=== PATIENT | female | born 1960 | race Caucasian/White ===

== ENCOUNTER 2024-11-14 09:29 | Outpatient (CLI) | payer BC, SELFPAY ==
--- NOTE | 2024-11-14 10:52 | P.ANES_ITS ---
Anesthesia Charges Start Date/Time Anesthesia Start Date: 11/14/24 Anesthesia Start Time: 10:09 Stop Date/Time Anesthesia Stop Date: 11/14/24 Anesthesia Stop Time: 10:45 Coding CPT Codes CPT Codes: ANES LWR INTST NDSC NOS - [id number] ([id number]) P3 - PATIENT W/SEVERE SYS DISEASE, QK - EXPEDITIONARY FORCE COMBAT SKILLS 2-4 CNCRNT ANES PROC, QX - CREATIVE PERFUMER SVC W/ MD MED DIRECTION
--- NOTE | 2024-11-14 10:52 | W.ANESCHARGE ---
Anesthesia Charges Start Date/Time Anesthesia Start Date: 11/14/24 Anesthesia Start Time: 10:09 Stop Date/Time Anesthesia Stop Date: 11/14/24 Anesthesia Stop Time: 10:45 Coding CPT Codes CPT Codes: ANES LWR INTST NDSC NOS - [id number] ([id number]) P3 - PATIENT W/SEVERE SYS DISEASE, QK - MOLD STAMPER AND REPAIRER 2-4 CNCRNT ANES PROC, QX - ENGINEERING TECHNICIAN PARKING SVC W/ MD MED DIRECTION
--- NOTE | 2024-11-14 11:33 | P.ANES_ITS ---
Anesthesia Charges Start Date/Time Anesthesia Start Date: 11/14/24 Anesthesia Start Time: 10:09 Stop Date/Time Anesthesia Stop Date: 11/14/24 Anesthesia Stop Time: 10:45 Coding CPT Codes CPT Codes: ANES LWR INTST NDSC NOS - [id number] ([id number]) QK - ASSOCIATE BUYER 2-4 CNCRNT ANES PROC, QX - TOOLING ENGINEER SVC W/ MED DIRECTION, P3 - PATIENT W/SEVERE SYS DISEASE
--- NOTE | 2024-11-14 11:33 | W.ANESCHARGE ---
Anesthesia Charges Start Date/Time Anesthesia Start Date: 11/14/24 Anesthesia Start Time: 10:09 Stop Date/Time Anesthesia Stop Date: 11/14/24 Anesthesia Stop Time: 10:45 Coding CPT Codes CPT Codes: ANES LWR INTST NDSC NOS - [id number] ([id number]) QK - EXECUTIVE PRODUCER 2-4 CNCRNT ANES PROC, QX - CHRISTIAN SCIENCE READER SVC W/ MED DIRECTION, P3 - PATIENT W/SEVERE SYS DISEASE
== END 2024-11-14 09:30 | disposition home or self-care (01) ==
LOC: OP CLINIC 09:32
PROVIDERS: PCP Internal Medicine; Visit Provider Surgery
DX: Z12.11 Encounter for screening for malignant neoplasm of colon (principal); Z86.0100 Personal history of colon polyps, unspecified; D12.2 Benign neoplasm of ascending colon; D12.4 Benign neoplasm of descending colon; D12.5 Benign neoplasm of sigmoid colon; R19.5 Other fecal abnormalities
CPT/HCPCS: 00811; 00812; 45385; 88305; J2704